=== PATIENT | male | born 1950 | race Two or more races ===

== ENCOUNTER 2019-10-20 11:57 | Emergency (ER) | payer OTHER ==
[2019-10-20 12:20] VITALS: BP 148/70; PULSE 80; TEMP 99.9; BMI 26.6
--- NOTE | 2019-10-20 13:01 | PDOC ---
History of Present Illness - General Chief Complaint: Blood Sugar Problem Stated Complaint: Cold Symptoms Time Seen by Provider: 10/20/19 13:01 History Source: Patient, Family (daughter) Exam Limitations: No Limitations - History of Present Illness Initial Comments: 10/20/19 13:19 69yM w PMHx amnesia, abdominal hernia presenting w 1d fever, non productive cough, generalized malaise, this morning found to have BG 300s. Did not take any OTC meds or daily prescriptions. Has been having intermittent lightheadedness for past 3mo and memory lapses and paranoia (doesn't carry any ID, doesn't trust people) for last 7 years, recently evaluated by PCP in July 2019 and scheduled neuro appt in October, and surgery eval for abd hernia. Was hospitalized at [facility] 7 years ago for paranoia, negative workup. Mother has Alzheimers. Denies alcohol, illicit drug use. Denies current hallucinations, nausea/vomiting, headache, chest pain, SOB, abd pain, urinary/ bowel mvmt changes. Past History - Past Medical History Allergies/Adverse Reactions: Allergies Allergy/AdvReac Type Severity Reaction Status Date / Time Penicillins Allergy Verified 10/20/19 12:16 Home Medications: Ambulatory Orders NK [No Known Home Medication] 10/20/19 - Psycho Social/Smoking Cessation Hx Smoking History: Current some day smoker Have you smoked in the past 12 months: Yes Number of Cigarettes Smoked Daily: 3 Information on smoking cessation initiated: Yes Hx Alcohol Use: No Drug/Substance Use Hx: No Substance Use Type: None Review of Systems - Review of Systems Constitutional: Yes: Fever. No: Chills HEENTM: No: Blurred Vision, Nose Pain, Nose Congestion Respiratory: Yes: Cough. No: Shortness of Breath Cardiac (ROS): No: Chest Pain, Palpitations ABD/GI: No: Abdominal Distended, Constipated, Diarrhea, Nausea, Vomiting : No: Burning, Dysuria Musculoskeletal: No: Back Pain, Joint Pain Integumentary: No: Bruising, Flushing Neurological: No: Headache, Seizure Psychiatric: No: Anxiety, Depression, Stressors Endocrine: No: Intolerance to Cold, Intolerance to Heat Hematologic/Lymphatic: No: Anemia, Blood Clots *Physical Exam - Vital Signs Last Vital Signs Temp Pulse Resp BP Pulse Ox 99.9 F H 80 20 148/70 100 10/20/19 12:16 10/20/19 12:16 10/20/19 12:16 10/20/19 12:16 10/20/19 12:16 - Physical Exam General Appearance: Yes: Nourished, Appropriately Dressed. No: Apparent Distress HEENT: positive: EOMI, BEV, Normal Voice, Hearing Grossly Normal. negative: Scleral Icterus (R), Scleral Icterus (L), Nasal Congestion Respiratory/Chest: positive: Lungs Clear, Normal Breath Sounds. negative: Chest Tender, Respiratory Distress, Crackles, Rales, Rhonchi, Stridor, Wheezing Cardiovascular: positive: Regular Rhythm, Regular Rate, S1, S2, Systolic Murmur Gastrointestinal/Abdominal: positive: Normal Bowel Sounds, Flat, Soft, Hernia ( 3cm superior midline umbilical hernia, reduceable). negative: Tender, Organomegaly Musculoskeletal: negative: CVA Tenderness (R), CVA Tenderness (L) Extremity: positive: Normal Capillary Refill Integumentary: positive: Normal Color. 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 negative: Fully Oriented (AOx2, doesnt remember day/month), Facial Droop, Numbness, Sensory Deficit, Confused, Disoriented ED Treatment Course - LABORATORY CBC & Chemistry Diagram: 10/20/19 14:07 10/20/19 14:07 Medical Decision Making - Medical Decision Making 10/20/19 13:[address] - mild/moderate volume loss and periventricular chronic microvascular ischemic disease changes, focal encephalomalacia in L cerebellum medially, no acute bleed/infarct/mass EKG NSR, HR 78, QTc 405, no ST changes CXR - clear lung kim, normal cardiac size BG 66 --- 69yM w PMHx amnesia, abdominal hernia presenting w 1d fever, non productive cough, generalized malaise, hyperglycemia, 3mo lightheadedness, 7yr memory lapses and paranoia. Abnormal diadochokinesis and AOx2 on neuro exam. Has systolic murmur on exam Has viral URI and chronic microvascular ischemic disease vs undiagnosed DM. Low concern for CVA (no focal neuro deficits) vs PNA (clear lungs) vs flu (neg) Given sandwhich, repeat BG 139 DC w PCP and neuro f/u Discharge - Discharge Information Problems reviewed: Yes Clinical Impression/Diagnosis: Systolic murmur, Hypoglycemia, Ischemic brain injury, Viral URI Condition: Improved Disposition: HOME - Follow up/Referral Referrals: Joshua Lorenzo MD [Primary Care Provider] - Jairo Capellan MD [Staff Physician] - - Patient Discharge Instructions Patient Printed Discharge Instructions: Common Cold, DI for Hypoglycemia Additional Instructions: Follow up with your primary care doctor about your heart murmur, blood glucose changes, and recent ED visit. Follow up with the referred neurologist about your memory issues - Post Discharge Activity
[2019-10-20 14:57] LABS: BASO % 0.9 % (0-2.0); EOS % 1.9 % (0-4.5); HEMATOCRIT 40.4 % (35.4-49); LYMPH % 7.8 % (8-40); MCH 29.7 pg (25.7-33.7); MCHC 32.2 g/dl (32.0-35.9); MEAN CELL VOLUME 92.2 fl (80-96); MEAN PLT VOLUME 8.7 fl (7.5-11.1); MONO % 18.5 % (3.8-10.2); NEUT % 70.9 % (42.8-82.8); PLATELET COUNT 226 K/MM3 (134-434); RBC 4.38 M/mm3 (4.00-5.60); RDW 12.8 % (11.9-15.9); WHITE BLOOD COUNT 7.7 K/mm3 (4.0-10.0)
[2019-10-20 15:15] LABS: ALBUMIN 3.9 g/dl (3.4-5.0); BILIRUBIN,TOTAL 0.5 mg/dL (0.2-1); BLOOD UREA NITROGEN 14.4 mg/dL (7-18); CALCIUM 8.5 mg/dL (8.5-10.1); POTASSIUM 4.1 mmol/L (3.5-5.1); TOT PROT 7.3 g/dl (6.4-8.2)
--- NOTE | 2019-10-21 14:16 | EKG ---
Test Reason : Blood Pressure : / mmHG Vent. Rate : 078 BPM Atrial Rate : 078 BPM P-R Int : 120 ms QRS Dur : 074 ms QT Int : 356 ms P-R-T Axes : 053 034 052 degrees QTc Int : 405 ms NORMAL SINUS RHYTHM POSSIBLE LEFT ATRIAL ENLARGEMENT NONSPECIFIC T WAVE ABNORMALITY ABNORMAL ECG WHEN COMPARED WITH ECG OF 07-FEB-2014 07:31, QRS AXIS SHIFTED LEFT CRITERIA FOR LATERAL INFARCT ARE NO LONGER PRESENT Confirmed by ZOE CASTILLO MD ([id number]) on 10/21/2019 2:15:53 PM Referred By: Confirmed By:ZOE CASTILLO MD
--- NOTE | 2019-10-22 09:30 | PDOC ---
Documentation entered by Socorro Thapa SCRIBE, acting as scribe for Eugene Rausch MD. Eugene Rausch MD: This documentation has been prepared by the Elier garcaí Sammi, SCRIBE, under my direction and personally reviewed by me in its entirety. I confirm that the documentation accurately reflects all work, treatment, procedures, and medical decision making performed by me. Attending Attestation - Resident Resident Name: Aaron Wolf - ED Attending Attestation I have performed the following: I have examined & evaluated the patient, The case was reviewed & discussed with the resident, I agree w/resident's findings & plan, Exceptions are as noted - HPI HPI: 10/20/19 13:52 The patient is a 69 year old male, with a PMH of amnesia, abdominal hernia, who presents to the emergency department for evaluation of 1 day of generalized malaise with associated fever. He notes taking his blood sugar this morning which was found to be in the 300s. The patient also endorses dizziness and recalls having an appointment set up with neuro in October PCP: Maura Allergies: Penicillins - Physicial Exam PE: 10/20/19 14:44 Vitals: Triage vital signs reviewed General Appearance: No acute distress, well nourished, well developed Eyes: Pupils equal reactive round, extraocular movement intact Neck: Supple; No nuchal rigidity Cardiac: Regular rate and rhythm, no murmurs, no rubs, no gallops Lungs: Clear to auscultation bilateral, good air movement bilaterally Abdomen: Soft, nondistended, normal bowel sounds, nontender to palpation Extremities: Full range of motion to all extremities, no cyanosis, clubbing, or edema Skin: Warm and dry, no rashes or lesions, no rash, no petechiae Neuro: AOX3; Cranial Nerves 2-12 grossly intact, Strength intact to all extremities, Sensation intact to all extremities, gait normal - Medical Decision Making 10/22/19 09:39 Labs within normal limits. Head CT findings as dictated. Findings relayed to family. Patient has follow-up appointment with neurology Findings, the need for follow-up and strict return instructions discussed with patient and family.
== END 2019-10-20 16:24 | disposition home or self-care (01) ==
LOC: JER 11:57
DX: R01.1 Cardiac murmur, unspecified (principal); E16.2 Hypoglycemia, unspecified; J06.9 Acute upper respiratory infection, unspecified; I67.82 Cerebral ischemia
CPT/HCPCS: 36415; 70450-TC; 71046-TC-FY; 80053; 82962; 85025; 87804; 93005; 93010; 99285-25